=== PATIENT | female | born 1960 | race Caucasian/White ===

== ENCOUNTER → 2020-03-15 13:45 | Outpatient (BNVA) | payer OTHER, SELFPAY | PROVIDERS: Visit Provider Family Medicine | DX: M54.5 Low back pain (principal) | CPT/HCPCS: 81000 ==

== ENCOUNTER → 2023-03-04 16:05 | Outpatient (BNVA) | payer OTHER, SELFPAY | PROVIDERS: PCP Family Medicine; Visit Provider Family Medicine | DX: R06.02 Shortness of breath (principal) | CPT/HCPCS: 71046 ==